=== PATIENT | female | born 1980 | race Caucasian/White ===

== ENCOUNTER 2016-02-20 15:20 | Inpatient (IN) | payer OTHER ==
[~2016-02-20] VITALS: Ht 175.3 cm; Wt 88.9 kg
[~2016-02-20 15:20] MED LIST: LEVO75TA3 PO; PRENCAP10 PO; PROM25SU8 PO; RANI150T PO; VALT500T PO
[2016-02-21] VITALS (13 sets, daily range): BP systolic 105–130; BP diastolic 67–89; PULSE 70–92; RESP 16–18; TEMP 97.5–98.6; O2SAT 95–97
[2016-02-21] MEDS ORDERED: CITRIC ACID-SODIUM CITRATE LIQ 30 ML UDC ONE (06:06)
[2016-02-21] MEDS ORDERED: LACTATED RINGER'S 1000 ML IV SCH (06:15)
[2016-02-21] MEDS ORDERED: CITRIC ACID-SODIUM CITRATE LIQ 30 ML UDC PO SCH (06:15)
[2016-02-21] MEDS ORDERED: LACTATED RINGER'S 1000 ML IV ONE (06:15)
[2016-02-21] MEDS ORDERED: ceFAZolin 2 GM PREMIX 50 ML IV SCH (06:15)
[2016-02-21] MEDS ORDERED: INSU100V3 SQ ×2 (06:21→06:22)
[2016-02-21] MEDS ORDERED: INSUINJ3 (06:23)
[2016-02-21 06:35] LABS: AUTOMATED NEUTROPHIL # 8.8 TH/MM3 (1.8-7.7); BASOPHIL # 0.1 TH/MM3 (0-0.2); BASOPHIL % 0.6 % (0.0-2.0); EOSINOPHIL # 0.1 TH/MM3 (0-0.4); EOSINOPHIL % 1.2 % (0.0-4.0); HEMATOCRIT 33.3 % (35.0-46.0); HEMO FLAGS DIFF FINAL; LYMPH % 18.2 % (9.0-44.0); LYMPHOCYTE # 2.2 TH/MM3 (1.0-4.8); MEAN CELL VOLUME 81.6 FL (80.0-100.0); MEAN CORPUSCULAR HEMOGLOBIN 27.2 PG (27.0-34.0); MEAN CORPUSCULAR HGB CONC 33.3 % (32.0-36.0); MONO % 6.2 % (0.0-8.0); NEUT % 73.8 % (16.0-70.0); PLATELET COUNT 213 TH/MM3 (150-450); RED BLOOD COUNT 4.08 MIL/MM3 (4.00-5.30); RED CELL DISTRIBUTION WIDTH 14.5 % (11.6-17.2); WHITE BLOOD COUNT 11.9 TH/MM3 (4.0-11.0)
[2016-02-21 06:52] LABS: BLOOD, URINE NEG (NEG); COMMENT (UR) CULT NOT INDICATED; CULTURE IF INDICATED CULT NOT INDICATED; GLUCOSE,URINE NEG (NEG); KETONE, URINE NEG (NEG); MUCUS URINE FEW /lpf (OCC); NITRITE,URINE NEG (NEG); SQUAMOUS EPITHELIAL CELL URINE 6 /hpf (0-5); URINE COLOR YELLOW (YELLW/STRAW)
[2016-02-21] MEDS ORDERED: OXYTOCIN 10 UNIT/ML AMP ONE (07:14)
[2016-02-21] MEDS ORDERED: MORPHINE SULFATE PF 5 MG/10 ML VIAL ONE (08:19)
[2016-02-21] MEDS ORDERED: MORPHINE SULFATE 4 MG/ML INJ ONE (08:20)
[2016-02-21] MEDS ORDERED: ZOLPIDEM TARTRATE 5 MG TAB PO PRN (08:45)
[2016-02-21] MEDS ORDERED: ACETAMINOPHEN 325 MG TAB PO PRN (08:45)
[2016-02-21] MEDS ORDERED: SIMETHICONE 80 MG CHEWABLE TAB PO PRN (08:45)
[2016-02-21] MEDS ORDERED: oxyCODONE/ACETAMINOPHEN 5 MG/325 MG TAB PO PRN (08:45)
[2016-02-21] MEDS ORDERED: OXYTOCIN 30 UNITS-500ML PREMIX 500 ML IV ONE (08:45)
[2016-02-21] MEDS ORDERED: ONDANSETRON HCL 4 MG/2 ML VIAL IV PUSH PRN (08:45)
[2016-02-21] MEDS ORDERED: SODIUM CHLORIDE 0.9% FLUSH 5 ML FLUSH IV PRN (08:45)
[2016-02-21] MEDS ORDERED: ACETAMINOPHEN 1000 MG/100 ML VIAL IV ONE ×2 (08:45→09:12)
[2016-02-21] MEDS: SODIUM CHLORIDE 0.9% FLUSH 5 ML FLUSH IV SCH ×2 (08:55→21:00)
[2016-02-21] MEDS ORDERED: EPIDURAL-DO NOT ADMINISTER ANTICOAGULANTS XX PRN (09:00)
[2016-02-21] MEDS ORDERED: EPIDURAL-NO SYSTEMIC NARCOTICS XX PRN (09:00)
[2016-02-21] MEDS ORDERED: EPIDURAL-NALOXONE HCL 0.4 MG/ML AMP IV PRN (09:00)
[2016-02-21] MEDS ORDERED: OXYTOCIN 30 UNITS-500ML PREMIX 500 ML ONE (09:03)
--- NOTE | 2016-02-21 09:15 | MP ---
cc: FABIEN OAKES MD DATE OF SURGERY 02/21/2016 PREOPERATIVE DIAGNOSES 1. Intrauterine at term. 2. Gestational diabetic. 3. Previous , desires repeat . POSTOPERATIVE DIAGNOSES 1. Intrauterine at term. 2. Gestational diabetic. 3. Previous , desires repeat . PROCEDURE Repeat lower segment transverse section via previous Pfannenstiel skin incision. SURGEON Dr. Oakes ANESTHESIA Spinal. FLUIDS 1300 cc crystalloids. ESTIMATED BLOOD LOSS 550 cc. URINE OUTPUT 100 cc clear yellow at the end of the procedure. FINDINGS A live male was delivered vertex presentation, Apgars 9 at one minute and 9 at five minutes. weight 7 pounds, 15 ounces. PROCEDURE The patient was taken to the operating room where spinal anesthesia was found to be adequate. She was prepped and draped in the normal sterile fashion in the dorsal supine position with a leftward tilt. A Pfannenstiel skin incision was made with a scalpel and carried down to the underlying layer of fascia. The fascia was nicked in the midline and the incision extended laterally with curved Godinez scissors. Attention was turned to the inferior aspect of the incision which was grasped with Karl clamps, elevated and the rectus muscles dissected off sharply. Attention was turned to the superior aspect of the incision which was grasped with Karl clamps, elevated and the rectus muscles dissected off sharply. The rectus muscles were in the midline. The peritoneum was identified, grasped between two Constance clamps, elevated and entered sharply with Metzenbaum scissors. This incision was extended superiorly and inferiorly with good visualization of the bladder. The bladder blade was inserted. The vesicouterine peritoneum was identified, grasped with pickups and entered sharply with Metzenbaum scissors. This incision was extended laterally and the bladder flap created digitally. The lower uterine segment was incised in a transverse fashion with a scalpel. The incision was extended laterally with bandage scissors. Clear fluid was noted. The vertex was delivered. The mari- and nasopharynx were bulb suctioned with a syringe. The shoulders were delivered atraumatically. The cord was clamped x 2 and cut. The was handed off to the waiting nurse. Cord blood was collected for cord blood banking; 10 cm of cord were preserved for the tissue preservation. The placenta was then delivered manually. The uterus was cleared of all clots and debris. The placenta was sent for donation as well. The uterus was repaired in two layers with #1 Vicryl. Hemostasis was assured. The gutters were cleared of all clots and debris. The fascia was repaired in a running fashion with 0 Vicryl. The skin was closed with inderjit. Hemostasis was assured. The sponge, lap, needle and instrument counts were correct x 3. The patient was transferred to the recovery room in stable condition. MD ELBA West/PIERO /8:40 AM /9:00 AM
[2016-02-21] MEDS: EPIDURAL-DIPHENHYDRAMINE HCL 50 MG/ML VIAL IV PUSH PRN ×3 (10:58→17:33)
[2016-02-21] MEDS: INSULIN NovoLIN REGULAR SUPPLEMENTAL SCALE SQ SCH ×3 (12:00→21:19)
[2016-02-21] MEDS ORDERED: LACTATED RINGER'S 1000 ML INJ 1,000 ML IV SCH (13:32)
[2016-02-21] MEDS: ACETAMINOPHEN 1000 MG/100 ML VIAL IV SCH (17:33)
[2016-02-21] MEDS ORDERED: OXYTOCIN 30 UNITS-500ML PREMIX 500 ML IV PRN (18:45)
[2016-02-21] MEDS: oxyCODONE/ACETAMINOPHEN 5 MG/325 MG TAB PO PRN (21:04)
[2016-02-21] MEDS: IBUPROFEN 600 MG TAB PO PRN (21:04)
[2016-02-21] MEDS: DOCUSATE SODIUM 50 MG/SENNA 8.6 MG TAB PO PRN (21:04)
[2016-02-22 00:05] VITALS: BP 105/68; PULSE 80; RESP 18; TEMP 98.4
[2016-02-22] MEDS: EPIDURAL-DIPHENHYDRAMINE HCL 50 MG CAP PO PRN ×2 (00:54→07:12)
[2016-02-22] MEDS: ACETAMINOPHEN 1000 MG/100 ML VIAL IV SCH (00:56)
[2016-02-22] MEDS: IBUPROFEN 600 MG TAB PO PRN ×4 (03:23→21:48)
[2016-02-22] MEDS: oxyCODONE/ACETAMINOPHEN 5 MG/325 MG TAB PO PRN ×5 (03:23→20:04)
[2016-02-22 07:17] LABS: AUTOMATED NEUTROPHIL # 8.2 TH/MM3 (1.8-7.7); BASOPHIL # 0.1 TH/MM3 (0-0.2); BASOPHIL % 0.5 % (0.0-2.0); EOSINOPHIL # 0.1 TH/MM3 (0-0.4); HEMATOCRIT 29.2 % (35.0-46.0); HEMO FLAGS DIFF FINAL; LYMPH % 19.6 % (9.0-44.0); LYMPHOCYTE # 2.2 TH/MM3 (1.0-4.8); MEAN CELL VOLUME 82.1 FL (80.0-100.0); NEUT % 73.9 % (16.0-70.0); PLATELET COUNT 175 TH/MM3 (150-450); RED BLOOD COUNT 3.56 MIL/MM3 (4.00-5.30); RED CELL DISTRIBUTION WIDTH 14.2 % (11.6-17.2); WHITE BLOOD COUNT 11.2 TH/MM3 (4.0-11.0)
[2016-02-22] MEDS: LEVOTHYROXINE SODIUM 50 MCG TAB PO SCH (08:04)
[2016-02-22] MEDS: DOCUSATE SODIUM 50 MG/SENNA 8.6 MG TAB PO PRN (08:04)
--- NOTE | 2016-02-22 08:24 | HHI.OB ---
Subjective Post Operative Day: 1 Remarks s/p repeat CD and BTL Objective Vitals/I&O Vital Signs Date Time Temp Pulse Resp B/P Pulse Ox O2 Delivery O2 Flow Rate FiO2 02/22/16 04:23 18 02/22/16 04:23 18 02/22/16 01:26 18 02/22/16 00:05 98.4 80 18 105/68 02/21/16 20:02 98.6 84 16 120/70 02/21/16 15:30 97.8 81 16 113/70 02/21/16 15:00 16 02/21/16 14:00 18 02/21/16 13:00 16 02/21/16 11:51 16 02/21/16 11:10 97.5 18 02/21/16 11:10 70 105/68 02/21/16 09:24 97.5 02/21/16 09:21 72 125/76 02/21/16 09:21 18 95 02/21/16 08:57 82 117/69 02/21/16 08:57 18 96 02/21/16 08:44 97 02/21/16 08:44 81 18 117/75 02/21/16 08:28 119/67 Result Diagram: 02/22/16 0705 Objective Remarks GENERAL: Well-nourished, well-developed patient. CARDIOVASCULAR: Regular rate and rhythm without murmurs, gallops, or rubs. RESPIRATORY: Breath sounds equal bilaterally. No accessory muscle use. ABDOMEN/GI: Abdomen soft, non-tender, bowel sounds present. Incision: bandage Clean & dry Fundus: Firm, non-tender at umbilicus. GENITOURINARY: Light to moderate bleeding. EXTREMITIES: No cyanosis or edema, non-tender, without signs of DVT. Medications and IVs Current Medications Medications (Trade) Dose Ordered Sig/Malaika Route Start Time Stop Time Status Last Admin (Lr 1000 ml Inj) 1,000 ml @ 100 mls/hr Q10H IV 02/21/16 13:32 02/22/16 09:31 02/21/16 15:25 (NS Flush) 2 ml BID IV 02/21/16 09:00 (NS Flush) 2 ml UNSCH PRN IV 02/21/16 08:45 (Mylicon Chew) 80 mg QID PRN PO 02/21/16 08:45 (Tylenol) 650 mg Q6H PRN PO 02/21/16 08:45 (Motrin) 600 mg Q6H PRN PO 02/21/16 08:45 02/22/16 03:23 (Percocet 5-325 Mg) 1 tab Q4H PRN PO 02/21/16 08:45 (Percocet 5-325 Mg) 2 tab Q4H PRN PO 02/21/16 08:45 02/22/16 08:04 (Maria Dolores-Colace) 2 tab Q12H PRN PO 02/21/16 08:45 02/22/16 08:04 (Ambien) 5 mg HS PRN PO 02/21/16 08:45 (M-M-R Ii Inj) 0.5 ml ONCE ONCE SQ 02/22/16 16:00 02/22/16 16:01 (Boostrix Inj) 0.5 ml ONCE ONCE IM 02/22/16 16:00 02/22/16 16:01 (Zofran Inj) 4 mg Q6H PRN IV PUSH 02/21/16 08:45 Miscellaneous Information NO SYSTEMIC NARCOTICS TO BE GIVEN FO... UNSCH PRN XX 02/21/16 09:00 02/22/16 08:59 (Narcan Inj) 0.4 mg UNSCH PRN IV 02/21/16 09:00 02/22/16 08:59 (Benadryl Inj) 25 mg Q6H PRN IV PUSH 02/21/16 09:00 02/22/16 08:59 02/21/16 17:33 (Benadryl) 50 mg Q6H PRN PO 02/21/16 09:00 02/22/16 08:59 02/22/16 07:12 Miscellaneous Information ALL NURSING DEPARTMENTS UNSCH PRN XX 02/21/16 09:00 02/22/16 08:59 (Ofirmev Inj) 1,000 mg Q8H IV 02/21/16 17:00 02/22/16 09:01 02/22/16 00:56 (Synthroid) 50 mcg DAILY PO 02/22/16 09:00 02/22/16 08:04 (Zantac) 150 mg Q12HR PO 02/22/16 09:00 UNV (Valtrex) 500 mg DAILY PO 02/22/16 09:00 UNV Assessment/Plan Problem List: (1) Status post repeat low transverse section Assessment and Plan POD#1 supportive care, shower today & remove bandage for circ prior to d/c routine postop care Discharge Planning routine Dory Hong MD Feb 22, 2016 08:24
[2016-02-22] MEDS: FAMOTIDINE 20 MG TAB PO SCH ×2 (11:38→21:48)
[2016-02-22 16:00] VITALS: BP 133/70; PULSE 79; RESP 18; TEMP 98.9
[2016-02-22] MEDS ORDERED: MEASLES, MUMPS, RUBELLA VACCINE 0.5 ML VIAL SQ ONE (16:00)
[2016-02-22] MEDS ORDERED: DIPHTH/TETANUS/ACEL PERTUSSIS (BOOSTER) 0.5 ML VIAL/PFS IM ONE (16:00)
[2016-02-22] MEDS: valACYclovir HCL 500 MG TAB PO SCH (16:53)
--- NOTE | 2016-02-22 17:00 | HHI.DCPOC ---
Discharge Care Plan Diagnosis: (1) Status post repeat low transverse section Your Health Problems Are: delivery Report Symptoms to Your Doctor -Temperate above 100.5 degrees -Redness, of incision or excessive or foul smelling drainage -Unusual pain or calf pain -Increased vaginal bleeding -Painful or difficulty urinating -Feelings of extreme sadness or anxiety after 2 weeks Goals to Promote Your Health * To prevent worsening of your condition and complications * To maintain your health at the optimal level Directions to Meet Your Goals Take your medications as prescribed Follow your dietary instruction Follow activity as directed Ensure plenty of rest for recovery Drink fluids for hydration Keep your appointments as scheduled Take your immunizations and boosters as scheduled If your symptoms worsen call your PCP, if no PCP go to Urgent Care Center or Emergency Room Smoking is Dangerous to Your Health. Avoid second hand smoke Call the 24-hour crisis hotline for domestic abuse at Dory Hong MD Feb 22, 2016 16:59
[2016-02-23] MEDS: oxyCODONE/ACETAMINOPHEN 5 MG/325 MG TAB PO PRN ×6 (00:12→21:39)
[2016-02-23] MEDS: IBUPROFEN 600 MG TAB PO PRN ×3 (04:40→19:51)
[2016-02-23 07:00] VITALS: BP 118/83; PULSE 75; RESP 18; TEMP 98
[2016-02-23] MEDS: valACYclovir HCL 500 MG TAB PO SCH (08:51)
[2016-02-23] MEDS: DOCUSATE SODIUM 50 MG/SENNA 8.6 MG TAB PO PRN (08:51)
[2016-02-23] MEDS: FAMOTIDINE 20 MG TAB PO SCH ×2 (08:52→19:50)
[2016-02-23] MEDS: LEVOTHYROXINE SODIUM 50 MCG TAB PO SCH (08:52)
--- NOTE | 2016-02-23 10:24 | HHI.OB ---
Subjective Post Operative Day: 2 Remarks s/p repeat CD and BTL with Dr. Oakes; healthy full term male Objective Vitals/I&O Vital Signs Date Time Temp Pulse Resp B/P Pulse Ox O2 Delivery O2 Flow Rate FiO2 02/23/16 07:00 98.0 75 18 118/83 02/23/16 05:50 18 02/23/16 05:50 18 02/22/16 16:00 79 18 133/70 02/22/16 16:00 98.9 Result Diagram: 02/22/16 0705 Objective Remarks GENERAL: Well-nourished, well-developed patient. CARDIOVASCULAR: Regular rate and rhythm without murmurs, gallops, or rubs. RESPIRATORY: Breath sounds equal bilaterally. No accessory muscle use. ABDOMEN/GI: Abdomen soft, non-tender, bowel sounds present. Incision: Clean & dry; inderjit in place. Fundus: Firm, non-tender at umbilicus. GENITOURINARY: Light to moderate bleeding. EXTREMITIES: No cyanosis or edema, non-tender, without signs of DVT. Medications and IVs Current Medications Medications (Trade) Dose Ordered Sig/Malaika Route Start Time Stop Time Status Last Admin (NS Flush) 2 ml BID IV 02/21/16 09:00 (NS Flush) 2 ml UNSCH PRN IV 02/21/16 08:45 (Mylicon Chew) 80 mg QID PRN PO 02/21/16 08:45 (Tylenol) 650 mg Q6H PRN PO 02/21/16 08:45 02/22/16 10:11 (Motrin) 600 mg Q6H PRN PO 02/21/16 08:45 02/23/16 04:40 (Percocet 5-325 Mg) 1 tab Q4H PRN PO 02/21/16 08:45 (Percocet 5-325 Mg) 2 tab Q4H PRN PO 02/21/16 08:45 02/23/16 08:52 (Maria Dolores-Colace) 2 tab Q12H PRN PO 02/21/16 08:45 02/23/16 08:51 (Ambien) 5 mg HS PRN PO 02/21/16 08:45 (Zofran Inj) 4 mg Q6H PRN IV PUSH 02/21/16 08:45 (Synthroid) 50 mcg DAILY PO 02/22/16 09:00 02/23/16 08:52 (Pepcid) 20 mg BID PO 02/22/16 09:00 02/23/16 08:52 (Valtrex) 500 mg DAILY PO 02/22/16 09:00 02/23/16 08:51 Assessment/Plan Problem List: (1) Status post repeat low transverse section Assessment and Plan POD#2 supportive care, pt had some issues with pain control overnight, moving slowly, plan to keep today & d/c tmrw infant s/p circ by me this AM routine d/c planning for tmrw remove inderjit prior to d/c Discharge Planning routine Dory Hong MD Feb 23, 2016 10:24
[2016-02-23] MEDS ORDERED: SENN1TAB PO (10:25)
[2016-02-23] MEDS ORDERED: OXYC1TAB63 PO (10:25)
[2016-02-23] MEDS ORDERED: IBUP-232 PO (10:25)
[2016-02-23] MEDS ORDERED: BISACODYL 10 MG SUPP RECTAL PRN (18:15)
[2016-02-23] MEDS ORDERED: diphenhydrAMINE HCL 50 MG CAP PO PRN (18:15)
[2016-02-24] MEDS: IBUPROFEN 600 MG TAB PO PRN ×2 (01:48→08:29)
[2016-02-24] MEDS: oxyCODONE/ACETAMINOPHEN 5 MG/325 MG TAB PO PRN ×2 (05:25→10:31)
[2016-02-24] MEDS: FAMOTIDINE 20 MG TAB PO SCH (08:29)
[2016-02-24] MEDS: LEVOTHYROXINE SODIUM 50 MCG TAB PO SCH (08:29)
[2016-02-24] MEDS: valACYclovir HCL 500 MG TAB PO SCH (08:29)
--- NOTE | 2016-02-24 08:40 | HHI.OB ---
Subjective Post Operative Day: 3 Remarks c/o min blood tinged serrous drainage. walking, eating well, passing flatus Objective Result Diagram: 02/22/16 0705 Objective Remarks GENERAL: Well-nourished, well-developed patient. CARDIOVASCULAR: Regular rate and rhythm without murmurs, gallops, or rubs. RESPIRATORY: Breath sounds equal bilaterally. No accessory muscle use. ABDOMEN/GI: Abdomen soft, non-tender, bowel sounds present. Incision: Clean & dry; indrejit in place. No drainage noted, no erythema or warmth Fundus: Firm, non-tender at umbilicus. GENITOURINARY: Light to moderate bleeding. EXTREMITIES: No cyanosis or edema, non-tender, without signs of DVT. Medications and IVs Current Medications Medications (Trade) Dose Ordered Sig/Malaika Route Start Time Stop Time Status Last Admin (NS Flush) 2 ml BID IV 02/21/16 09:00 (NS Flush) 2 ml UNSCH PRN IV 02/21/16 08:45 (Mylicon Chew) 80 mg QID PRN PO 02/21/16 08:45 (Tylenol) 650 mg Q6H PRN PO 02/21/16 08:45 02/22/16 10:11 (Motrin) 600 mg Q6H PRN PO 02/21/16 08:45 02/24/16 08:29 (Percocet 5-325 Mg) 1 tab Q4H PRN PO 02/21/16 08:45 (Percocet 5-325 Mg) 2 tab Q4H PRN PO 02/21/16 08:45 02/24/16 05:25 (Maria Dolores-Colace) 2 tab Q12H PRN PO 02/21/16 08:45 02/23/16 08:51 (Ambien) 5 mg HS PRN PO 02/21/16 08:45 (Zofran Inj) 4 mg Q6H PRN IV PUSH 02/21/16 08:45 (Synthroid) 50 mcg DAILY PO 02/22/16 09:00 02/24/16 08:29 (Pepcid) 20 mg BID PO 02/22/16 09:00 02/24/16 08:29 (Valtrex) 500 mg DAILY PO 02/22/16 09:00 02/24/16 08:29 (Benadryl) 50 mg Q6H PRN PO 02/23/16 18:15 02/23/16 18:13 (Dulcolax Supp) 10 mg DAILY PRN RECTAL 02/23/16 18:15 02/23/16 18:13 Assessment/Plan Problem List: (1) Status post repeat low transverse section Assessment and Plan POD#3 supportive care, pt had some issues with pain control overnight, moving slowly, plan to keep today & d/c tmrw s/p circ routine d/c planning for today remove inderjit prior to d/c Discharge Planning routine Tala Coronado MD Feb 24, 2016 08:40
== END 2016-02-24 12:57 | disposition home or self-care (01) | DRG 765 ==
LOC: H2EB 02-21 05:44 → H1EA 02-21 10:08
PROVIDERS: ADMIT Obstetrics & Gynecology; ATTEND Obstetrics & Gynecology
PROC: 10D00Z1 Extraction of Products of Conception, Low, Open Approach (ICD-10-PCS; principal; 2016-02-21)
DX: O34.211 Maternal care for low transverse scar from previous cesarean delivery (principal); O98.32 Other infections with a predominantly sexual mode of transmission complicating childbirth; E03.9 Hypothyroidism, unspecified; O09.523 Supervision of elderly multigravida, third trimester; O99.284 Endocrine, nutritional and metabolic diseases complicating childbirth; K21.9 Gastro-esophageal reflux disease without esophagitis; O24.424 Gestational diabetes mellitus in childbirth, insulin controlled; O26.893 Other specified pregnancy related conditions, third trimester; A60.00 Herpesviral infection of urogenital system, unspecified; Z3A.00 Weeks of gestation of pregnancy not specified; Z37.0 Single live birth
CPT/HCPCS: 59025; 81001; 82948; 85025; 86850; 86900; 86901; J0131; J0690; J1200; J2270; J2274; J2590; J7120; Q0163

== ENCOUNTER 2016-11-16 16:47 | Emergency (ER) | payer OTHER ==
[~2016-11-16] VITALS: Ht 175.3 cm; Wt 79.5 kg
[~2016-11-16 16:47] MED LIST changes: +IBUP-232 PO; +OXYC1TAB63 PO; -PROM25SU8 PO; +SENN1TAB PO
[2016-11-16 16:49] VITALS: BP 113/68; PULSE 82; RESP 20; TEMP 97.6; O2SAT 96
[2016-11-16] MEDS ORDERED: SE-NCHW CHEW (17:07)
[2016-11-16] MEDS ORDERED: OMEP20TA PO (17:07)
[2016-11-16] MEDS ORDERED: LEVO75TA3 PO (17:07)
[2016-11-16] MEDS ORDERED: VALT500T PO (17:07)
--- NOTE | 2016-11-16 17:19 | PD ---
HPI . right foot pain Chief Complaint: Injury Time Seen by Provider: 17:17 Travel History International Travel<30 days: No Contact w/Intl Traveler<30days: No Traveled to known affect area: No History of Present Illness HPI 36 yr old female here with c/o right foot pain. Patient was walking down some stairs and sort of landed on her foot wrong. She now c/o foot pain and was worried about a fracture. She says the pain is moderate and hurts a little more as the day progressed. She has no other issues. PFSH Past Medical History Autoimmune Disease: Yes (RA) Diminished Hearing: No Fibromyalgia: Yes Integumentary: Yes (HERPES) Thyroid Disease: Yes (HYPOTHYROIDISM) ?: Not : 3 Para: 1 : 1 Ovarian Cysts: Yes Past Surgical History Section: Yes Gynecologic Surgery: Yes ( X2) Social History Alcohol Use: No Tobacco Use: No Substance Use: No Allergies-Medications (Allergen,Severity, Reaction): Coded Allergies: No Known Allergies (Unverified , 11/16/16) Reported Meds & Prescriptions Reported Meds & Active Scripts Active Reported Se-Virgil 19 29-1 mg Chew ( Vit W/ Ferrous Fumara Chew) 1 Chew 1 Tab CHEW DAILY Omeprazole Unknown Strength Tab Unknown Dose PO DAILY Valtrex (Valacyclovir HCl) 500 Mg Tab 500 Mg PO DAILY Levothyroxine (Levothyroxine Sodium) 75 Mcg Tab 75 Mcg PO DAILY Review of Systems General / Constitutional: No: Fever Eyes: No: Visual changes HENT: No: Headaches Cardiovascular: No: Chest Pain or Discomfort Respiratory: No: Shortness of Breath Gastrointestinal: No: Abdominal Pain Genitourinary: No: Dysuria Musculoskeletal: Positive: Pain (right foot pain ) Skin: No Rash Neurologic: No: Weakness Psychiatric: No: Depression Endocrine: No: Polydipsia Hematologic/Lymphatic: No: Easy Bruising Physical Exam Narrative GENERAL: AAO x 3, no acute distress, Well-nourished, well-developed patient. SKIN: Warm and dry. No visible rashes or bruising. HEAD: Normocephalic and atraumatic. EYES: No scleral icterus. No injection or drainage. ENT: No nasal drainage noted. Mucous membranes pink. Airway patent. NECK: Supple, trachea midline. No JVD. CARDIOVASCULAR: Regular rate and rhythm without murmurs, gallops, or rubs. RESPIRATORY: Breath sounds equal bilaterally. No accessory muscle use. No rhonchi or rales. GASTROINTESTINAL: visual inspection normal EXTREMITIES: No cyanosis or edema. mild tenderness along medial right foot with very minimal ecchymosis; ambulatory BACK: No obvious deformity. NEURO: CN II-12 intact, PSYCH: AAO x 3, normal affect. Data Data Last Documented VS Vital Signs Date Time Temp Pulse Resp B/P (MAP) Pulse Ox O2 Delivery O2 Flow Rate FiO2 11/16/16 16:49 97.6 82 20 113/68 (83) 96 Room Air Orders Orders Foot, Complete ([id number]) (11/16/16 17:16) [facility] Medical Decision Making Medical Screen Exam Complete: Yes Emergency Medical Condition: No Medical Record Reviewed: Yes Differential Diagnosis foot sprain, foot fracture, less likely tendinitis Narrative Course 36 yr old female here with right foot pain. Xray ordered to r/o fracture, although I do not suspect one. xray reviewed; advised f/u with PCP. Her pain is along medial aspect so I do not suspect fracture along lateral side. Advised AISHA. Patient verbalized understanding of instructions, questions were answered, and thanked me for their care. I advised them if their condition worsens, please return to the nearest emergency room for further care. Diagnosis Primary Impression: Foot pain, right Patient Instructions: General Instructions Additional Instructions: Rest the affected area as much as possible. Ice this area for 15-20 minutes at a time. You can do this every hour or as much as tolerated. Elevate this area. Use ibuprofen as needed for pain and inflammation. Med/Other Pt SpecificInfo: No Change to Meds Disposition: 01 DISCHARGE HOME Condition: Stable Ramila Figueroa Nov 16, 2016 17:19
--- NOTE | 2016-11-16 17:43 | RADRPT ---
EXAM DATE/TIME: 11/16/2016 17:27 [place] COMPARISON: No previous studies available for comparison. INDICATIONS : Foot pain from walking downstairs and tripping. MEDICAL HISTORY : None. SURGICAL HISTORY : None. ENCOUNTER: Initial ACUITY: 1 day PAIN SCORE: 0/10 LOCATION: Right foot FINDINGS: AP, lateral and oblique views demonstrate a small ossific or calcific structure along the lateral cub oid measuring 8 x 2 mm. lateral cuboid measuring 8 x 2 mm in diameter. No donor site is visualized. w ell-visualized. The other bony structures are intact. The metatarsals and phalanges are intact. There is no definite focal soft tissue abnormality identified radiographically. CONCLUSION: Small ossific or calcific structure along the lateral cuboid which may represent an o s peroneum which is an accessory ossicle of the foot. An avulsion fracture is less likely. This appea rs to be well-corticated. Clinical correlation for point tenderness at this site is recommended. Jagdish Cain MD on November 16, 2016 at 17:34 Board Certified Radiologist. This report was verified electronically.
== END 2016-11-16 18:07 | disposition home or self-care (01) ==
LOC: NEPK 16:47
DX: M79.671 Pain in right foot (principal)
CPT/HCPCS: 73630; 99283